=== PATIENT | female | born 1945 | race Caucasian/White ===

== ENCOUNTER 2019-11-29 06:54 | Emergency (ER) | payer MEDICARE ==
[2019-11-29] MEDS ORDERED: LIDOCAINE HCL 1% 20 ML VIAL ONE (07:53)
[2019-11-29] MEDS ORDERED: NEOMY SULF/BACITRA/POLYMYXIN B 1 EACH PACKET TP ONE (08:30)
== END 2019-11-29 08:48 | disposition home or self-care (01) ==
LOC: EDH 06:54
DX: S51.012A Laceration without foreign body of left elbow, initial encounter (principal); I10 Essential (primary) hypertension; Z98.890 Other specified postprocedural states; Z87.891 Personal history of nicotine dependence; W18.39XA Other fall on same level, initial encounter; Y93.01 Activity, walking, marching and hiking; Y92.098 Other place in other non-institutional residence as the place of occurrence of the external cause; Y99.8 Other external cause status
CPT/HCPCS: 12032; 73070